=== PATIENT | male | born 1955 | race Caucasian/White ===

== ENCOUNTER 2018-11-18 12:00 | Inpatient (IN) | payer OTHER ==
[2018-11-18 15:55] VITALS: BMI 22.0
[2018-11-18] MEDS ORDERED: MAGNESIUM HYDROX 2400MG/30ML ORAL SUSPENSION 30 ML CUP PO PRN (17:49)
[2018-11-18] MEDS ORDERED: MENTHOL/PHENOL 1 EACH UD MM PRN (17:49)
[2018-11-18] MEDS ORDERED: MAG HYDROX/AL HYDROX/SIMETH 30 ML UNIT-DOSE CUP PO PRN (17:49)
[2018-11-18] MEDS ORDERED: guaiFENesin/D-METHORPHAN HB 10 ML UNIT-DOSE CUPS PO PRN (17:49)
[2018-11-18] MEDS ORDERED: IBUPROFEN 400 MG TABLET (FP) PO PRN (17:49)
[2018-11-18] MEDS ORDERED: P-EPHED 60MG/TRIPROLIDI 2.5MG TABLET PO PRN (17:49)
[2018-11-18] MEDS ORDERED: MAGNESIUM CITRATE 300 ML BOTTLE PO PRN (17:49)
[2018-11-18] MEDS ORDERED: ACETAMINOPHEN 325 MG TABLET (FP) PO PRN (17:49)
[2018-11-18] MEDS ORDERED: LOPERAMIDE HCL 2 MG CAPSULE PO PRN (17:49)
--- NOTE | 2018-11-18 17:49 | HP ---
CIWA Score Nausea/Vomitin-Mild Nausea/No Vomiting Muscle Tremors: 3 Anxiety: 3 Agitation: 3 Paroxysmal Sweats: 2 Orientation: 0-Oriented Tacttile Disturbances: 0-None Auditory Disturbances: 0-None Visual Disturbances: 0-None Headache: 0-None Present CIWA-Ar Total Score: 12 - Admission Criteria OASAS Guidelines: Admission for Medically Managed Detox: Requires at least one of the followin. CIWA greater than 12 2. Seizures within the past 24 hours 3. Delirium tremens within the past 24 hours 4. Hallucinations within the past 24 hours 5. Acute intervention needed for co occurring medical disorder 6. Acute intervention needed for co occurring psychiatric disorder 7. Severe withdrawal that cannot be handled at a lower level of care (continued vomiting, continued diarrhea, abnormal vital signs) requiring intravenous medication and/or fluids 8. 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 alcohol- 1 pint of vodka/day, 2 40oz malt liquor, no h/o seizures, DT's marijuana- smokes 2-3 joints/day DUR no controlled substances Urine tox: THC, MARILUZ- 0.349, 5:15 0.230 Allergies/Adverse Reactions: Allergies Allergy/AdvReac Type Severity Reaction Status Date / Time No Known Allergies Allergy Verified 09/15/15 12:05 Exam Limitations: No Limitations - Ebola screening Have you traveled outside of the country in the last 21 days: No Have you had contact with anyone from an Ebola affected area: No Have you been sick,other than usual withdrawal symptoms: No Do you have a fever: No - Review of Systems Constitutional: No Symptoms Reported EENT: reports: No Symptoms Reported Musculoskeletal: reports: No Symptoms Reported (pt cannot remember the last time he took a shower) Integumentary: reports: No Symptoms Reported Neuro: reports: No Symptoms reported Endocrine: reports: No Symptoms Reported Hematology: reports: No Symptoms Reported Psychiatric: reports: Depressed Patient History - Patient Medical History Hx Anemia: No Hx Asthma: No Hx Chronic Obstructive Pulmonary Disease (COPD): No Hx Cardiac Disorders: No Hx Hypertension: No Hx Hypercholesterolemia: No HX Cerebrovascular Accident: No Hx Seizures: No Hx Diabetes: No Hx Gastrointestinal Disorders: Yes (HX RECTAL BLEEDING) Hx Genitourinary Disorders: No Hx Sexually Transmitted Disorders: No (DENIES) Hx Renal Disease (ESRD): No Hx Thyroid Disease: No Hx Human Immunodeficiency Virus (HIV): No (NEGATIVE HX) Hx Hepatitis C: No Hx Depression: Yes (NOT CURRENTLY ON MED) Hx Suicide Attempt: No (DENIES) Hx Bipolar Disorder: Yes Hx Schizophrenia: No Other Medical History: movement disorder - Patient Surgical History Past Surgical History: Yes Hx Neurologic Surgery: No Hx Cataract Extraction: No Hx Cardiac Surgery: No Hx Lung Surgery: No Hx Breast Surgery: No Hx Breast Biopsy: No Hx Abdominal Surgery: No Hx Appendectomy: No Hx Cholecystectomy: No Hx Genitourinary Surgery: No Hx Section: Yes (nasal fx in 1981) Hx Orthopedic Surgery: No Anesthesia Reaction: No - PPD History Date: 09/17/15 PPD to be Administered?: Yes - Smoking Cessation Smoking history: Former smoker Have you smoked in the past 12 months: No If you are a former smoker, when did you quit?: 2002 Hx Chewing Tobacco Use: No Initiated information on smoking cessation: Yes 'Breaking Loose' booklet given: 11/18/18 - Substance & Tx. History Hx Alcohol Use: Yes Hx Substance Use: Yes Substance Use Type: Alcohol, Marijuana Hx Substance Use Treatment: Yes (1 year ago- [facility]) Family Disease History - Family Disease History Family Disease History: Heart Disease: Father (DE-), Other: Mother ( ALZHEIMERS DISEASE-), Brother (ALCOHOLISM), Sister (ALCOHOLISM) Admission Physical Exam S - Vital Signs Vital Signs: Vital Signs - 24 hr 11/18/18 15:52 Temperature 97.6 F Pulse Rate 77 Respiratory 18 Rate Blood Pressure 101/64 - Physical General Appearance: Yes: Disheveled, Cachetic, Thin HEENTM: Yes: Hearing grossly Normal, [place], Pharynx Normal Respiratory: Yes: Within Normal Limits Neck: Yes: Within Normal Limits Cardiology: Yes: Within Normal Limits Abdominal: Yes: Within Normal Limits Back: Yes: Within Normal Limits Musculoskeletal: Yes: Other (unable to move wrist and not able to use hands) Extremities: Yes: Other (unable to move wrist and not able to use hands, trace edema of legs and feet, no evidence of infection, ruborous legs/feet) Neurological: Yes: Other (unable to move wrist and not able to use hands) Integumentary: Yes: Pitting Edema, Other (trace edema of legs and feet, no evidence of infection, ruborous legs/feet) Lymphatic: Yes: Within Normal Limits [facility] Breath Alcohol Content Breath Alcohol Content: 0.349 Urine Drug Screen - Results Drug Screen Negative: No Urine Drug Screen Results: THC-Marijuana
[2018-11-18] MEDS ORDERED: chlordiazePOXIDE 5 MG CAPSULE PO PRN (17:51)
[2018-11-18] MEDS ORDERED: MELATONIN 5 MG TABLETS PO PRN (22:00)
[2018-11-18] MEDS: THIAMINE HCL 100 MG TABLET (FP) PO SCH (22:21)
[2018-11-18] MEDS: chlordiazePOXIDE HCL 25 MG CAPSULE PO SCH (22:21)
[2018-11-19] MEDS: chlordiazePOXIDE HCL 25 MG CAPSULE PO SCH ×3 (05:23→16:48)
[2018-11-19] MEDS: PRENATAL VITAMINS W/ FOLIC ACID TABLET (FP) PO SCH (10:04)
[2018-11-19] MEDS ORDERED: IBUPROFEN 400 MG TABLET (FP) PO PRN (10:16)
[2018-11-19] MEDS ORDERED: LIDOCAINE 5% TOPICAL PATCH TP ONE (10:20)
--- NOTE | 2018-11-19 10:32 | CONSULT ---
[facility] Psychiatric Consult - Data Date of interview: 11/19/18 Admission source: [facility] Identifying data: Readmission to [facility] for this 63 y/o male undergoing detoxification treatment (alcohol) on . Patient is single without children, unemployed, domiciled and supported on SSI benefits. Substance Abuse History: Discussed in this session. Patient reportedly consumes 1-2 pints of vodka daily. Started duising alcohol at age 11. Smokes 1-3 marihuana joints a day (started at age 14). [facility] report : Smoking history: Former smoker. Have you smoked in the past 12 months: No. If you are a former smoker, when did you quit?: 2002. Hx Chewing Tobacco Use: No. Initiated information on smoking cessation: Yes. 'Breaking Loose' booklet given: . - Substance & Tx. History. Hx Alcohol Use: Yes. Hx Substance Use: Yes. Substance Use Type: Alcohol, Marijuana. Hx Substance Use Treatment: Yes (1 year ago- [facility]) Medical History: Distant history of rectal bleeding. Patient reports chronic pain in left shoulder and a neuropathy (left wrist). Psychiatric History: No reported history of psychiatric hospitalizations. Mr Butt indicates past treatment with mirtazapine, quetiapine and trazodone at various substance abuse treatment centers (to address depression + insomnia) . Chronically non-adherent to psychotropic medications. No OPD care. detox units in the past. Patient denies history of suicide attempts. Physical/Sexual Abuse/Trauma History: Patient denies. Additional Comment: Urine Drug Screen Results: THC-Marijuana. Noted. Mental Status Exam - Mental Status Exam Alert and Oriented to: Time, Place, Person Cognitive Function: Grossly Intact Patient Appearance: Unkempt, Disheveled (cachectic habitus) Mood: Withdrawn, Anxious Affect: Mood Congruent, Constricted Patient Behavior: Fatigued, Appropriate, Cooperative Speech Pattern: Clear, Appropriate Voice Loudness: Normal Thought Process: Goal Oriented Thought Disorder: Not Present Hallucinations: Denies Suicidal Ideation: Denies Homicidal Ideation: Denies Insight/Judgement: Poor Sleep: Poorly, Difficulty falling asleep Appetite: Poor, Weight loss Gait/Station: Other (ambulates with a cane ; slow, unsteagy gait) Psychiatric Findings - Problem List ([place] 1, 2,3) (1) Alcohol dependence with uncomplicated withdrawal Current Visit: Yes Status: Acute (2) Cannabis dependence Current Visit: Yes Status: Chronic (3) Substance induced mood disorder Current Visit: Yes Status: Chronic (4) Insomnia Current Visit: Yes Status: Chronic - Initial Treatment Plan Initial Treatment Plan: Psychoeducation. Sleep hygiene. Detoxification in progress. Support. AA meetings. Motivational rounds. Mr Butt declines option of rehabilitation in favor of referral to outpatient ETOH program. Remeron 7.5 mg po hs. Side effects/benefits discused with patient. Consent ( verbal) granted to Falls precautions. Observation.
--- NOTE | 2018-11-19 10:32 | PN ---
S CIWA - CIWA Score Nausea/Vomitin-No Nausea/No Vomiting Muscle Tremors: 4-Moderate,w/Arms Extend Anxiety: 4-Mod. Anxious/Guarded Agitation: 3 Paroxysmal Sweats: 3 Orientation: 0-Oriented Tacttile Disturbances: 0-None Auditory Disturbances: 0-None Visual Disturbances: 0-None Headache: 1-Very Mild CIWA-Ar Total Score: 15 [facility] Progress Note (SOAP) Subjective: sweats shakes interrupted sleep body aches lower back pain agitation Objective: 11/19/18 10:32 Vital Signs Temperature 98.9 F 11/19/18 09:15 Pulse Rate 101 H 11/19/18 09:15 Respiratory Rate 16 11/19/18 09:15 Blood Pressure 134/75 11/19/18 09:15 O2 Sat by Pulse Oximetry (%) labs pending aaox3 ambulating no acute distress Assessment: 11/19/18 10:32 withdrawal sx Plan: continue detox increase fluids motrin 800mg tid prn lidocaine patch flexiril 10mg prn
[2018-11-19 12:28] LABS: URINE APPEARANCE CLEAR; URINE BILIRUBIN NEGATIVE (<2.0 mg/dL); URINE COLOR STRAW; URINE GLUCOSE (UA) NEGATIVE (NEGATIVE); URINE KETONE NEGATIVE (NEGATIVE); URINE LEUK ESTERASE NEGATIVE (NEGATIVE); URINE NITRITE NEGATIVE (NEGATIVE); URINE PROTEIN NEGATIVE (NEGATIVE); URINE UROBILINOGEN NEGATIVE mg/dL (0.2-1.0)
[2018-11-19] MEDS: BACLOFEN 10 MG TABLET (FP) PO SCH ×2 (15:01→22:13)
[2018-11-19] MEDS: LIDOCAINE PATCH REMOVAL MC SCH (22:13)
[2018-11-19] MEDS: THIAMINE HCL 100 MG TABLET (FP) PO SCH (22:13)
[2018-11-19] MEDS: chlordiazePOXIDE 5 MG CAPSULE PO SCH (22:13)
[2018-11-19] MEDS: IBUPROFEN 400 MG TABLET (FP) PO PRN (22:14)
[2018-11-19] MEDS: MIRTAZAPINE 15 MG TABLET (FP) PO SCH (22:14)
[2018-11-20] MEDS: BACLOFEN 10 MG TABLET (FP) PO SCH ×3 (06:10→22:22)
[2018-11-20] MEDS: chlordiazePOXIDE 5 MG CAPSULE PO SCH ×4 (06:10→22:22)
[2018-11-20] MEDS: IBUPROFEN 400 MG TABLET (FP) PO PRN ×2 (07:34→18:52)
--- NOTE | 2018-11-20 09:17 | PN ---
S CIWA - CIWA Score Nausea/Vomitin-No Nausea/No Vomiting Muscle Tremors: 3 Anxiety: 3 Agitation: 3 Paroxysmal Sweats: 3 Orientation: 0-Oriented Tacttile Disturbances: 0-None Auditory Disturbances: 0-None Visual Disturbances: 0-None Headache: 0-None Present CIWA-Ar Total Score: 12 [facility] Progress Note (SOAP) Subjective: agitation body aches sweats interrupted sleep shakes Objective: 11/20/18 09:16 Vital Signs Temperature 98.2 F 11/20/18 08:25 Pulse Rate 85 11/20/18 08:25 Respiratory Rate 18 11/20/18 08:25 Blood Pressure 109/83 11/20/18 08:25 O2 Sat by Pulse Oximetry (%) Laboratory Tests 11/19/18 08:00 Urine Color Straw Urine Appearance Clear Urine pH 5.0 Ur Specific [place] 1.004 L Urine Protein Negative Urine Glucose (UA) Negative Urine Ketones Negative Urine Blood Negative Urine Nitrite Negative Urine Bilirubin Negative Urine Urobilinogen Negative Ur Leukocyte Esterase Negative rest of labs pending aaox3 ambulating no acute distress Assessment: 11/20/18 09:16 withdrawal sx Plan: continue detox increase fluids lidocaine patch motrin prn
[2018-11-20] MEDS: PRENATAL VITAMINS W/ FOLIC ACID TABLET (FP) PO SCH (10:00)
[2018-11-20] MEDS: LIDOCAINE 5% TOPICAL PATCH TP SCH (10:01)
[2018-11-20 10:19] LABS: ALBUMIN 3.2 g/dl (3.4-5.0); ALK PHOS 161 U/L (45-117); ANION GAP 9 MMOL/L (8-16); BILIRUBIN,TOTAL 0.9 mg/dL (0.2-1); BLOOD UREA NITROGEN 9 mg/dL (7-18); CALCIUM 8.6 mg/dL (8.5-10.1); CHLORIDE 108 mmol/L (98-107); CO2 27 mmol/L (21-32); CREATININE 0.8 mg/dL (0.55-1.3); GLUCOSE,RANDOM 139 mg/dL (74-106); POTASSIUM 3.5 mmol/L (3.5-5.1); SGOT/AST 48 U/L (15-37); SGPT/ALT 21 U/L (13-61); SODIUM 144 mmol/L (136-145); TOT PROT 7.9 g/dl (6.4-8.2)
[2018-11-20 14:33] LABS: MCH 35.5 pg (25.7-33.7); MCHC 33.2 g/dl (32.0-35.9); MEAN CELL VOLUME 106.9 fl (80-96); MEAN PLT VOLUME 8.2 fl (7.5-11.1); PLATELET COUNT 70 K/MM3 (134-434); RBC 3.08 M/mm3 (4.00-5.60); RDW 15.6 % (11.9-15.9); WHITE BLOOD COUNT 7.7 K/mm3 (4.0-10.0)
[2018-11-20] MEDS: THIAMINE HCL 100 MG TABLET (FP) PO SCH (22:21)
[2018-11-20] MEDS: MIRTAZAPINE 15 MG TABLET (FP) PO SCH (22:22)
[2018-11-20] MEDS: LIDOCAINE PATCH REMOVAL MC SCH (22:23)
[2018-11-21] MEDS: chlordiazePOXIDE 5 MG CAPSULE PO SCH ×4 (06:15→22:10)
[2018-11-21] MEDS: BACLOFEN 10 MG TABLET (FP) PO SCH ×3 (06:15→22:10)
[2018-11-21] MEDS: PRENATAL VITAMINS W/ FOLIC ACID TABLET (FP) PO SCH (10:16)
[2018-11-21] MEDS: LIDOCAINE 5% TOPICAL PATCH TP SCH (10:17)
--- NOTE | 2018-11-21 12:00 | PN ---
[facility] Progress Note (SOAP) Subjective: feeling better sweats Objective: 11/21/18 11:59 Vital Signs Temperature 98.2 F 11/21/18 09:32 Pulse Rate 98 H 11/21/18 09:32 Respiratory Rate 18 11/21/18 09:32 Blood Pressure 134/86 11/21/18 09:32 O2 Sat by Pulse Oximetry (%) aaox3 ambulating/also using wheelchair to assist if necessary no acute distress Assessment: 11/21/18 11:59 mild withdrawal sx Plan: continue detox increase fluids d/c in am pt will require the need of medical transportation to get him back home.
[2018-11-21] MEDS: THIAMINE HCL 100 MG TABLET (FP) PO SCH (22:10)
[2018-11-21] MEDS: IBUPROFEN 400 MG TABLET (FP) PO PRN (22:11)
[2018-11-21] MEDS: LIDOCAINE PATCH REMOVAL MC SCH (22:11)
[2018-11-21] MEDS: MIRTAZAPINE 15 MG TABLET (FP) PO SCH (22:12)
[2018-11-22] MEDS: chlordiazePOXIDE 5 MG CAPSULE PO SCH ×2 (05:49→10:35)
[2018-11-22] MEDS: BACLOFEN 10 MG TABLET (FP) PO SCH (05:49)
--- NOTE | 2018-11-22 09:59 | DS ---
[facility] Detox Discharge Summary Admission Date: 11/18/18 Discharge Date: 11/22/18 - History Present History: Alcohol Dependence, Cannabis Dependence - Physical Exam Results Vital Signs: Vital Signs Temperature 96.6 F L 11/22/18 06:22 Pulse Rate 79 11/22/18 06:22 Respiratory Rate 18 11/22/18 06:22 Blood Pressure 120/76 11/22/18 06:22 O2 Sat by Pulse Oximetry (%) - Treatment Hospital Course: Detox Protocol Followed, Detoxed Safely, Responded well, Discharged Condition Good, Rehab Referral Accepted - Medication Discharge Medications: Ambulatory Orders Mirtazapine [Remeron -] 7.5 mg PO HS #30 tablet 09/16/15 Lidocaine 5% Patch [Lidoderm -] 1 patch TP DAILY #90 patch 11/21/18 - AMA Did Patient Leave Against Medical Advice: No (decline rehab. pt states he is going home. has appt with his PCP)
[2018-11-22 10:00] VITALS: BP 111/76; PULSE 93; TEMP 100.2
[2018-11-22] MEDS: PRENATAL VITAMINS W/ FOLIC ACID TABLET (FP) PO SCH (10:34)
[2018-11-22] MEDS: LIDOCAINE 5% TOPICAL PATCH TP SCH (10:35)
--- NOTE | 2018-11-23 13:47 | PN ---
[facility] Progress Note Note: TC from Lane Butt ([phone]) who was discharged yesterday from [facility] but did not get his remeron prescription - apparently it was sent to [place] and he lives in the [place] - I re-sent the prescription to his [facility]
== END 2018-11-22 12:22 | disposition home or self-care (01) | DRG 775 ==
LOC: YASAS 12:00 → Y6N 19:36
PROVIDERS: ADMIT Neuromusculoskeletal Medicine & OMM; ATTEND Neuromusculoskeletal Medicine & OMM
PROC: HZ2ZZZZ Detoxification Services for Substance Abuse Treatment (ICD-10-PCS; principal; 2018-11-18)
DX: F10.230 Alcohol dependence with withdrawal, uncomplicated (principal); F12.20 Cannabis dependence, uncomplicated; F19.24 Other psychoactive substance dependence with psychoactive substance-induced mood disorder; G47.00 Insomnia, unspecified; Z87.891 Personal history of nicotine dependence
CPT/HCPCS: 36415; 80053; 81003; 85027; 86593; J0475